=== PATIENT | female | born 2000 | race Caucasian/White ===

== ENCOUNTER 2019-07-04 11:59 | Emergency (ER) | payer OTHER, SELFPAY ==
--- NOTE | 2019-07-04 12:08 | ED.FEMALEGU ---
HPI - Female Genitourinary General Chief complaint: Urogenital-Female Stated complaint: uti Time Seen by Provider: 07/04/19 12:08 Source: patient and RN notes reviewed History of Present Illness HPI Narrative: Patient is a 18-year-old female presents the urgent care with complaints of possible UTI. Patient states as of last night she started having burning with decreased urine, foul odor, suprapubic pressure, nausea, intermittent low back pain, and urinary urgency. Patient states she does have a history of urinary tract infections however, has not had one for at least 1 year. Patient denies any blood in the urine. Denies any history of kidney stones. Patient has not taken anything for her symptoms. No other acute complaints. No acute distress noted. Patient read the plan of care. Related Data Home Medications Medication Instructions Recorded Confirmed norgestimate-ethinyl estradiol 1 tablet PO DAILY 03/31/19 07/04/19 [Sprintec (28)] Allergies Allergy/AdvReac Type Severity Reaction Status Date / Time No Known Allergies Allergy Unknown Verified 07/04/19 12:05 Review of Systems Review of Systems: Narrative: CONSTITUTIONAL: Denies fever, chills, or sweats. EYES: Denies visual changes, redness, or discharge. ENT: Denies rhinorrhea, congestion, sore throat, or otalgia. CARDIOVASCULAR: Denies chest pain, palpitations, or edema. RESPIRATORY: Denies cough or dyspnea. GASTROINTESTINAL: Reports of nausea and suprapubic pressure GENITOURINARY: Reports of dysuria, foul urine odor, decreased urinary output, urgency SKIN: Denies rash or itching. MUSCULOSKELETAL: Reports of intermittent low back pain NEUROLOGIC: Denies headache, numbness, or weakness. All other systems reviewed are negative, except as documented in HPI. PMFSH Social History Social History Smoking status: Never smoker Comments At the time of my signature, I reviewed and agree with the nursing past medical, surgical, social, and family history. There is no relevant family history pertinent to the patient complaint. Exam Narrative: Exam Narrative: GENERAL: This is a well-nourished, well-developed patient, in no apparent distress. HEAD: normocephalic, atraumatic. EYES: PERRL. Sclera clear/white. Vision is grossly intact. EARS: External ears normal NOSE: External nose normal with no obvious nasal discharge THROAT: Mucous membranes moist, posterior pharynx clear. NECK: Neck supple CARDIOVASCULAR: Regular rate and rhythm without murmurs, gallops, or rubs. RESPIRATORY: Clear to auscultation. Breath sounds equal bilaterally. No wheezes, rales, or rhonchi. GASTROINTESTINAL: Abdomen soft, mild suprapubic tenderness, nondistended. Bowel sounds are active. SKIN: warm, intact with no suspicious lesions or rash, good texture and turgor. NEURO: awake, alert, and oriented to person, place and time. There were no obvious focal neurologic abnormalities. EXTREMITIES: No clubbing, cyanosis, or edema. BACK: Negative bilateral CVA tenderness Course Vital Signs Vital signs: Vital Signs Temperature 98.6 F 07/04/19 12:10 Pulse Rate 64 07/04/19 12:10 Respiratory Rate 18 07/04/19 12:10 Blood Pressure 129/77 07/04/19 12:10 Pulse Oximetry 100 07/04/19 12:10 Temperature 98.6 F 07/04/19 12:10 Pulse Rate 64 07/04/19 12:10 Respiratory Rate 18 07/04/19 12:10 Blood Pressure 129/77 07/04/19 12:10 Pulse Oximetry 100 07/04/19 12:10 Reviewed MDM - Female Genitourinary MDM Narrative Medical decision making narrative: Reviewed lab results with the patient. She is aware that urine analysis was likely indicative of a urinary tract infection. Advised the patient to complete antibiotic regimen as prescribed. Make sure to eat and drink with the medication. Use Pyridium, as needed for burning with urination. Only use the directed amount, as prescribed. If you develop any increase in symptoms ass
[2019-07-04 12:10] VITALS: BP 129/77; PULSE 64; RESP 18; TEMP 37; O2SAT 100
== END 2019-07-04 12:50 | disposition home or self-care (01) ==
PROVIDERS: Emergency Provider Nurse Practitioner Family
DX: N39.0 Urinary tract infection, site not specified (principal)
CPT/HCPCS: 81003; 87077; 87086; 87088; 87186; 99213; G0463

== ENCOUNTER 2019-11-20 14:44 | Emergency (ER) | payer OTHER, SELFPAY ==
--- NOTE | ~2019-11-20 | XR_ITS ---
EXAMINATION: XR chest 2V EXAM DATE: 11/20/2019 15:39 INDICATION: Mid chest pain. Cough, symptoms one week. TECHNIQUE: Frontal and lateral projections of the chest obtained and reviewed. Comparison is made to prior examination from 02/21/2008. FINDINGS: Lungs are hyperinflated. The lungs are clear. There are no pleural effusions. The cardio mediastinal silhouette is within normal limits. There is no pneumothorax suspected. The bones and s oft tissues are unremarkable. IMPRESSION: 1. No acute cardiopulmonary findings. 2. Hyperinflation. Reviewed, dictated and finalized at location B.
[2019-11-20 14:58] VITALS: BP 121/79; PULSE 83; RESP 16; TEMP 37.5; O2SAT 100
--- NOTE | 2019-11-20 15:11 | ED.GENADULT ---
HPI - General Adult General Chief complaint: Fever Stated complaint: fever and chest pain Time Seen by Provider: 11/20/19 15:11 Source: patient Mode of arrival: ambulatory Limitations: no limitations History of Present Illness HPI narrative: 19-year-old female patient presents to the [facility] with complaints of fever for the past week along with shortness of breath and some right-sided chest pain. Patient states she was tested for Aguilar about a week ago and was negative. Patient states that shortness of breath is worse with exertion and laying down. 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 Patient denies any sore throat, nausea, vomiting or diarrhea. Denies or breast-feeding at this time. Related Data Home Medications Medication Instructions Recorded Confirmed No Home Medications 11/20/19 11/20/19 Allergies Allergy/AdvReac Type Severity Reaction Status Date / Time No Known Allergies Allergy Unknown Verified 11/20/19 15:15 Review of Systems Review of Systems: Narrative: CONSTITUTIONAL: Denies fever, chills, or sweats. EYES: Denies visual changes, redness, or discharge. ENT: Denies rhinorrhea, congestion, sore throat, or otalgia. CARDIOVASCULAR: Positive right-sided chest pain, denies palpitations, or edema. RESPIRATORY: Denies cough, positive dyspnea. GASTROINTESTINAL: Denies abdominal pain, nausea, vomiting, or diarrhea. GENITOURINARY: Denies dysuria or hematuria. SKIN: Denies rash or itching. MUSCULOSKELETAL: Denies back pain, joint pain, or myalgia. NEUROLOGIC: Denies headache, numbness, or weakness. PSYCHIATRIC: Denies anxiety or depression. PMFSH Family History Family History Father Family history of colitis Social History Social History Smoking status: Never smoker Comments At the time of my signature I agree with nursing past medical history, surgical, social, and family history. There is no relevant family history pertinent to the presenting complaint. Exam Narrative: Exam Narrative: GENERAL: Well-appearing, well-nourished, and in no acute distress. HEAD: Normocephalic, atraumatic. EYES: PERRLA and EOMI. ENT: Nares clear, no rhinorrhea or epistaxis. Mucous membranes moist. Bilateral TMs are clear with no erythema or phlebitis of the canal. Posterior pharynx with no erythema, tonsillectomy, exudates or lesions present. NECK: Supple. No lymphadenopathy CHEST: Clear to auscultation. No respiratory distress. Patient able to clear complete sentences. No tripoding noted. HEART: Regular rate and rhythm. No murmur heard. Normal peripheral pulses. ABDOMEN: Soft, nontender, nondistended, normal active bowel sounds. EXTREMITIES: Normal range of motion. No edema. SKIN: Warm, dry, no rash. NEURO: No focal deficits. Alert and oriented x3. Course Vital Signs Vital signs: Vital Signs Temperature 37.5 C 11/20/19 14:58 Pulse Rate 83 11/20/19 14:58 Respiratory Rate 16 11/20/19 14:58 Blood Pressure 121/79 11/20/19 14:58 Pulse Oximetry 100 11/20/19 14:58 Temperature 37.5 C 11/20/19 14:58 Pulse Rate 83 11/20/19 14:58 Respiratory Rate 16 11/20/19 14:58 Blood Pressure 121/79 11/20/19 14:58 Pulse Oximetry 100 11/20/19 14:58 Vital signs reviewed. Transfer Transfered to: [facility] Transportation: Other (Private vehicle) Transfer rationale: Shortness of breath Accepting physician: Dr. Davila Transfer comments: Called spoke with LUCILA Katz and gave her report on patient that we are sending over with complaints of shortness of breath especially with exertion along with some low-grade fevers over the past week. Patient has been tested for COVID and is negative. We did do an x-ray in the clinic today which is also negative. Concerns for possible PE. Gianna is ekta
== END 2019-11-20 16:00 | disposition short-term general hospital (02) ==
PROVIDERS: Emergency Provider Nurse Practitioner Family; PCP Internal Medicine
DX: R06.09 Other forms of dyspnea (principal)
CPT/HCPCS: 71046; 81025; 87081; 87880; 99213; G0463